=== PATIENT | female | born 1990 ===

== ENCOUNTER 2022-08-13 13:45 | Inpatient (IN) | payer OTHER ==
[~2022-08-13] VITALS: Ht 144.8 cm; Wt 2.7 kg
[2022-08-20] MEDS ORDERED: INTEGRA F CAPS1 EACH (08:07)
== END 2022-08-22 13:15 | disposition home or self-care (01) | DRG 788 ==
LOC: OB/GYN 08-19 10:24
PROVIDERS: ADMIT Obstetrics & Gynecology; ATTEND Obstetrics & Gynecology
PROC: 4A1HXCZ Monitoring of Products of Conception, Cardiac Rate, External Approach (ICD-10-PCS; 2022-08-19)
PROC: 30233N1 Transfusion of Nonautologous Red Blood Cells into Peripheral Vein, Percutaneous Approach (ICD-10-PCS; 2022-08-19)
PROC: 0UB90ZZ Excision of Uterus, Open Approach (ICD-10-PCS; 2022-08-20)
PROC: 10D00Z1 Extraction of Products of Conception, Low, Open Approach (ICD-10-PCS; principal; 2022-08-20 11:15)
DX: O32.2XX0 Maternal care for transverse and oblique lie, not applicable or unspecified (principal); O99.02 Anemia complicating childbirth; D50.0 Iron deficiency anemia secondary to blood loss (chronic); O34.13 Maternal care for benign tumor of corpus uteri, third trimester; D25.9 Leiomyoma of uterus, unspecified; Z3A.39 39 weeks gestation of pregnancy; Z37.0 Single live birth; Z20.822 Contact with and (suspected) exposure to COVID-19